=== PATIENT | male | born 2000 | race Caucasian/White ===

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

== ENCOUNTER 2019-03-10 17:59 | Emergency (ER) | payer OTHER ==
[2019-03-10 18:28] VITALS: BP 125/82; PULSE 80; TEMP 98.9; BMI 30.8
--- NOTE | 2019-03-10 19:29 | PDOC ---
History of Present Illness - General Chief Complaint: Revisit, Lab Variance Stated Complaint: POSSIBLE STD Time Seen by Provider: 03/10/19 18:31 History Source: Patient Exam Limitations: Clinical Condition - History of Present Illness Initial Comments: 03/10/19 19:23 Patient with no significant past medical history present with complaint of red bumps to penis for 3 days.. Patient reported history of chlamydia in the past. Denies burning with urination, penile discharge, penile pain, urinary frequency. Is this a multiple visit Asthma Patient?: No Timing/Duration: other (3 days) Past History - Past Medical History Allergies/Adverse Reactions: Allergies Allergy/AdvReac Type Severity Reaction Status Date / Time No Known Allergies Allergy Verified 03/10/19 18:25 Home Medications: Ambulatory Orders Clindamycin [Cleocin -] 600 mg PO Q8H #42 capsule 02/26/15 Ibuprofen [Motrin] 800 mg PO TID #20 tablet 02/26/15 Oxycodone HCl/Acetaminophen [Percocet 5-325 mg Tablet] 1 - 2 tab PO Q6H #30 tablet 02/26/15 Valacyclovir HCl [Valtrex -] 500 mg PO BID 5 Days #20 tablet 03/10/19 COPD: No - Psycho Social/Smoking Cessation Hx Smoking History: Never smoked Have you smoked in the past 12 months: No Information on smoking cessation initiated: No Hx Alcohol Use: No Drug/Substance Use Hx: No Substance Use Type: Alcohol, Marijuana Review of Systems - Review of Systems Able to Perform ROS?: Yes Is the patient limited Azeri proficient: No Constitutional: No: Fever, Malaise, Weakness HEENTM: No: Symptoms Reported Respiratory: No: Symptoms reported Cardiac (ROS): No: Symptoms Reported ABD/GI: No: Symptoms Reported : Yes: Symptoms Reported, See HPI, Lesions (3 small red pumps on penis). No: Burning, Dysuria, Discharge, Frequency, Flank Pain, Urgency, Testicular Mass, Testicular Swelling, Testicular Pain Musculoskeletal: No: Symptoms Reported Integumentary: Yes: Symptoms Reported, See HPI, Lumps (red bumps to penis) Neurological: No: Symptoms reported All Other Systems: Reviewed and Negative *Physical Exam - Vital Signs Last Vital Signs Temp Pulse Resp BP Pulse Ox 98.9 F 80 18 125/82 99 03/10/19 18:27 03/10/19 18:27 03/10/19 18:27 03/10/19 18:27 03/10/19 18:27 - Physical Exam General Appearance: Yes: Nourished, Appropriately Dressed. No: Apparent Distress HEENT: positive: Normal ENT Inspection Neck: positive: Supple Respiratory/Chest: negative: Respiratory Distress, Accessory Muscle Use Male Genitalia: positive: other (small tiny erupted erythematous vesicular lesions to shaft of penis). negative: discharge, testicular tenderness, testicular mass, epididymus tender, inguinal hernia, CVAT Musculoskeletal: positive: Normal Inspection Extremity: positive: Normal Inspection Integumentary: positive: Normal Color, Other (3 tiny erythematous lesions to shaft of penis) Neurologic: positive: Fully Oriented, Alert, Normal Mood/Affect, Normal Response Medical Decision Making - Medical Decision Making 03/10/19 19:25 Patient with no significant past medical history present with complaint of red bumps to penis for 3 days.. Patient reported history of chlamydia in the past. Denies burning with urination, penile discharge, penile pain, urinary frequency. Exam significant for 3 small erythematous erupted lesion to shaft of penis. No discharge from penis. No other visible lesions. Patient symptoms likely HSV. Patient requesting STD testing. Swab of penile lesion taking for viral culture. Urine gonorrhea and chlamydia tests ordered. Urine culture ordered. HIV, RPR and HSV lab ordered as per patient request. Patient be discharged home on Valtrex after the HIV and RPR results 03/10/19 21:54 HIV and RPR negative. Patient will be treated with valtrex for possible HSV dermatitis with urology f/u pending GC/CHL/ hsv labs Discharge - Discharge Information Problems reviewed: Yes Clinical Impression/Diagnosis: HSV (herpes simplex virus) anogenital infection, Screening examination for sexually transmitted disease Condition: Stable Disposition: HOME - Admission No - Additional Discharge Information Prescriptions: Valacyclovir HCl [Valtrex -] 500 mg PO BID 5 Days #20 tablet - Follow up/Referral Referrals: Richard Rouse MD [Staff Physician] - - Patient Discharge Instructions Patient Printed Discharge Instructions: DI for Genital Herpes Additional Instructions: Your HIV and syphilis test is negative. Gonorrhea, chlamydia and herpes test pending and will be available in a few days. You be treated empirically for possible herpes rash. Take prescribed medication as prescribed. Follow-up referred urologist for reassessment. You will be contacted with test results in 5 to 7 days - Post Discharge Activity
== END 2019-03-10 21:24 | disposition home or self-care (01) ==
LOC: JERFT 17:59
DX: A60.9 Anogenital herpesviral infection, unspecified (principal)
CPT/HCPCS: 36415; 86593; 86694; 86695; 86696; 87086; 87252; 87389; 87491; 87591; 99281-25

== ENCOUNTER 2019-03-30 18:29 | Emergency (ER) | payer OTHER ==
[2019-03-30 18:38] VITALS: BP 134/84; PULSE 79; TEMP 98; BMI 30.8
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
== END 2019-03-30 20:51 | disposition home or self-care (01) ==
LOC: JERFT 18:29
DX: S16.1XXA Strain of muscle, fascia and tendon at neck level, initial encounter (principal); V43.52XA Car driver injured in collision with other type car in traffic accident, initial encounter; Y92.414 Local residential or business street as the place of occurrence of the external cause; Y93.89 Activity, other specified; Y99.8 Other external cause status
CPT/HCPCS: 72125-TC; 99281-25

== ENCOUNTER 2020-03-27 11:52 | Emergency (ER) | payer OTHER | END 2020-03-27 13:02 | disposition home or self-care (01) | LOC: JERFT 11:52 | DX: K08.89 Other specified disorders of teeth and supporting structures (principal) | CPT/HCPCS: 99283-25 ==

== ENCOUNTER 2020-10-03 17:09 | Emergency (ER) | payer OTHER ==
[2020-10-03 17:32] VITALS: BP 122/54; PULSE 101; TEMP 98.2; BMI 34.4
[2020-10-03] MEDS ORDERED: ACETAMINOPHEN 1000 MG/100 ML VIAL (NON FORMULARY) IVPB ONE (18:28)
[2020-10-03 20:36] LABS: BASO % 1.2 % (0-2.0); EOS % 2.4 % (0-4.5); HEMATOCRIT 48.3 % (35.4-49); HEMOGLOBIN 16.7 GM/dL (11.7-16.9); LYMPH % 26.9 % (8-40); MCHC 34.5 g/dl (32.0-35.9); MEAN CELL VOLUME 89.8 fl (80-96); MEAN PLT VOLUME 9.1 fl (7.5-11.1); MONO % 9.8 % (3.8-10.2); NEUT % 59.7 % (42.8-82.8); PLATELET COUNT 303 10^3/uL (134-434); RBC 5.37 M/mm3 (4.00-5.60); RDW 13.3 % (11.9-15.9); WHITE BLOOD COUNT 9.1 K/mm3 (4.0-10.0)
[2020-10-03 20:43] LABS: INR 0.94 (0.83-1.09); PROTHROMBIN TIME (PATIENT) 11.6 SEC (9.7-13.0)
[2020-10-03] MEDS ORDERED: FAMOTIDINE 20 MG TABLET PO ONE (20:46)
[2020-10-03] MEDS ORDERED: ACETAMINOPHEN INJECTION 100 ML IVPB ONE (20:47)
[2020-10-03] MEDS ORDERED: FAMOTIDINE 20 MG TABLET ONE (20:47)
[2020-10-03 20:55] LABS: BLOOD UREA NITROGEN 8.8 mg/dL (7-18); CALCIUM 9.5 mg/dL (8.5-10.1)
[2020-10-03 20:56] LABS: ALBUMIN 4.4 g/dl (3.4-5.0)
[2020-10-03 20:58] LABS: CREATININE 1.1 mg/dL (0.55-1.3)
[2020-10-03 21:00] LABS: BILIRUBIN,TOTAL 0.7 mg/dL (0.2-1); TOT PROT 8.1 g/dl (6.4-8.2)
[2020-10-03 21:02] LABS: PH,URINE 5.5 (5.0-8.0); URINE APPEARANCE CLEAR; URINE BILIRUBIN NEGATIVE (NEGATIVE); URINE COLOR DK YELLOW; URINE GLUCOSE (UA) NEGATIVE (NEGATIVE); URINE KETONE TRACE (NEGATIVE); URINE LEUK ESTERASE NEGATIVE (NEGATIVE); URINE NITRITE NEGATIVE (NEGATIVE); URINE PROTEIN NEGATIVE (NEGATIVE)
== END 2020-10-03 20:40 | disposition home or self-care (01) ==
LOC: JER 17:09
PROC: 3E033NZ Introduction of Analgesics, Hypnotics, Sedatives into Peripheral Vein, Percutaneous Approach (ICD-10-PCS; principal; 2020-10-03)
DX: M54.6 Pain in thoracic spine (principal)
CPT/HCPCS: 36415; 71046-TC-FY; 76705-TC; 80053; 81003; 83690; 85025; 85610; 87086; 99284-25; J0131

== ENCOUNTER 2021-11-23 23:04 | Emergency (ER) | payer OTHER ==
[2021-11-23 23:09] VITALS: BP 163/95; PULSE 110; RESP 18; TEMP 98.2; BMI 34.7
[2021-11-24] MEDS ORDERED: AMOXICILLIN 500 MG CAPSULE (FP) PO ONE (00:36)
[2021-11-24] MEDS ORDERED: AMOX TR/POT CLAV 500MG/125MG TABLETS (FP) ONE (01:12)
== END 2021-11-24 01:34 | disposition home or self-care (01) ==
LOC: JER 23:04
DX: K08.89 Other specified disorders of teeth and supporting structures (principal)
CPT/HCPCS: 99283-25

== ENCOUNTER 2021-12-27 16:36 | Emergency (ER) | payer OTHER ==
[2021-12-27 16:45] VITALS: BP 140/77; PULSE 90; RESP 18; TEMP 98.4; BMI 33.3
[2021-12-27 18:52] LABS: SYPHILIS W/ RPR CONF NON-REACTIVE (NONREACTIVE)
[2021-12-27 19:21] LABS: HIV INTERPRETATION NEGATIVE (NEGATIVE)
== END 2021-12-27 17:35 | disposition home or self-care (01) ==
LOC: JERFT 16:36
DX: K12.0 Recurrent oral aphthae (principal); K05.00 Acute gingivitis, plaque induced; Z20.2 Contact with and (suspected) exposure to infections with a predominantly sexual mode of transmission
CPT/HCPCS: 36415; 86694; 86695; 86696; 86780; 87389; 87491; 87591; 99283-25

== ENCOUNTER 2022-04-20 03:29 | Emergency (ER) | payer OTHER ==
[2022-04-20 03:36] VITALS: BP 142/89; PULSE 82; RESP 17; TEMP 97.8; BMI 35.9
[2022-04-20] MEDS ORDERED: AMOX TR/POT CLAV 875MG/125MG TABLETS (FP) PO ONE (07:41)
[2022-04-20] MEDS ORDERED: AMOX TR/POT CLAV 875MG/125MG TABLETS (FP) ONE (07:44)
== END 2022-04-20 07:53 | disposition home or self-care (01) ==
LOC: JER 03:29 → JERFT 03:29
DX: Z76.0 Encounter for issue of repeat prescription (principal)
CPT/HCPCS: 99283-25

== ENCOUNTER 2022-10-03 15:32 | Emergency (ER) | payer OTHER ==
[2022-10-03 15:56] VITALS: BP 132/79; PULSE 62; RESP 19; BMI 34.7
== END 2022-10-03 17:52 | disposition home or self-care (01) ==
LOC: JER 15:32 → JERFT 15:32
DX: K13.79 Other lesions of oral mucosa (principal)
CPT/HCPCS: 99282-25

== ENCOUNTER → 2022-10-11 | Emergency (ER) | payer OTHER ==
[2022-10-11 01:03] VITALS: BP 122/73; PULSE 75; RESP 18; TEMP 98; BMI 35.9
== END | disposition left against medical advice (07) ==
LOC: JER 00:45
DX: K12.30 Oral mucositis (ulcerative), unspecified (principal); R13.10 Dysphagia, unspecified
CPT/HCPCS: 99281-25

== ENCOUNTER 2023-05-20 16:08 | Emergency (ER) | payer OTHER ==
[2023-05-20 16:17] VITALS: BP 135/78; PULSE 99; RESP 20; TEMP 98; BMI 34.7
[2023-05-20] MEDS ORDERED: ALPRAZolam 0.25 MG TABLET ONE (16:43)
[2023-05-20] MEDS: ALPRAZolam 0.25 MG TABLET PO ONE (16:58)
[2023-05-20 17:42] LABS: BASO % 0.6 % (0-2.0); EOS % 0.7 % (0-4.5); HEMATOCRIT 46.7 % (35.4-49); HEMOGLOBIN 16.2 GM/dL (11.7-16.9); LYMPH % 16.9 % (8-40); MCH 31.6 pg (25.7-33.7); MCHC 34.8 g/dl (32.0-35.9); MEAN PLT VOLUME 8.8 fl (7.5-11.1); MONO % 6.7 % (3.8-10.2); NEUT % 75.1 % (42.8-82.8); PLATELET COUNT 326 10^3/uL (134-434); RBC 5.13 M/mm3 (4.00-5.60); RDW 13.1 % (11.9-15.9); WHITE BLOOD COUNT 12.4 K/mm3 (4.0-10.0)
[2023-05-20 18:22] LABS: POTASSIUM 4.1 mmol/L (3.5-5.1)
[2023-05-20 18:24] LABS: ALBUMIN 4.1 g/dl (3.4-5.0); BLOOD UREA NITROGEN 9.9 mg/dL (7-18); CALCIUM 9.1 mg/dL (8.5-10.1)
[2023-05-20 18:27] LABS: CREATININE 1.1 mg/dL (0.55-1.3)
[2023-05-20 18:29] LABS: BILIRUBIN,TOTAL 1.5 mg/dL (0.2-1)
[2023-05-20 18:30] LABS: TOT PROT 7.4 g/dl (6.4-8.2)
== END 2023-05-20 18:45 | disposition home or self-care (01) ==
LOC: JERFT 16:08
DX: F41.9 Anxiety disorder, unspecified (principal); R07.9 Chest pain, unspecified; R06.02 Shortness of breath; R00.2 Palpitations; R42 Dizziness and giddiness; R20.0 Anesthesia of skin; R20.2 Paresthesia of skin; R74.01 Elevation of levels of liver transaminase levels
CPT/HCPCS: 36415; 80053; 84484; 85025; 93005; 93010; 99284-25